=== PATIENT | female | born 1985 | race Caucasian/White ===

== ENCOUNTER 2016-08-27 14:26 | Emergency (ER) | payer OTHER ==
[~2016-08-27] VITALS: Ht 165.1 cm; Wt 79.6 kg
[~2016-08-27 14:26] MED LIST: CIPR500T94 PO; PNV1TABL69 PO
[2016-08-27 14:38] VITALS: BP 126/63
--- NOTE | 2016-08-27 15:33 | ED.ADGEN ---
Past History Past Medical History: No Pertinent History Past Surgical History: No Surgical History Smoking: Non-smoker Alcohol Use: None Drug Use: None Adult General Chief Complaint Chief Complaint Near syncope HPI HPI Patient is a 30 year old female who presents couple of hours ago while at work and standing she became lightheaded and her vision got a little blurry she had trouble talking and thought she was going to pass out. Sometime thereafter she did notice a mild to moderate headache that was generalized and gradual in onset. She did not actually pass out. Denies any chest pain or shortness of breath or abdominal pain or cramps. Denies any leakage of fluid. She is a at 16 weeks by LMP no care for this particular yet. Review of gestational diabetes in the past. Denies ataxia, slurred speech or difficulty with coordination. Reports not eating breakfast prior to this event Review of Systems Review of Systems Constitutional: Denies fever or chills [] Eyes: Denies change in visual acuity, redness, or eye pain [] HENT: Denies nasal congestion or sore throat [] Respiratory: Denies cough or shortness of breath [] Cardiovascular: No additional information not addressed in HPI [] GI: Denies abdominal pain, nausea, vomiting, bloody stools or diarrhea [] : Denies dysuria or hematuria [] Musculoskeletal: Denies back pain or joint pain [] Integument: Denies rash or skin lesions [] Neurologic: Denies focal weakness or sensory changes [] Endocrine: Denies polyuria or polydipsia All systems negative except as noted in the history of present illness [] Current Medications Current Medications Current Medications Medications (Trade) Dose Ordered Sig/Dalton Start Time Stop Time Status Last Admin Dose Admin Dextrose/Sodium Chloride 500 ml @ 0 mls/hr 1X ONCE 08/27/16 15:45 08/27/16 15:47 DC 08/27/16 16:10 500 MLS/HR Sodium Chloride 1,000 ml @ 1,000 mls/hr 1X ONCE 08/27/16 15:45 08/27/16 16:44 DC 08/27/16 16:15 1,000 MLS/HR Allergies Allergies Allergies Coded Allergies Type Severity Reaction Last Updated Verified No Known Drug Allergies 09/19/14 No Physical Exam Physical Exam Constitutional: Well developed, well nourished, no acute distress, non-toxic appearance. [] HENT: Normocephalic, atraumatic, bilateral external ears normal, oropharynx moist, no oral exudates, nose normal. [] Eyes: PERRLA, EOMI, conjunctiva normal, no discharge. [] Neck: Normal range of motion, no tenderness, supple, no stridor. [] Cardiovascular:Heart rate regular rhythm, no murmur [] Lungs & Thorax: Bilateral breath sounds clear to auscultation [] Abdomen: Bowel sounds normal, soft, no tenderness, no masses, no pulsatile masses. [] Skin: Warm, dry, no erythema, no rash. [] Back: No tenderness, no CVA tenderness. [] Extremities: No tenderness, no cyanosis, no clubbing, ROM intact, no edema. [] Neurologic: Alert and oriented X 3, normal motor function, normal sensory function, no focal deficits noted. [] Psychologic: Affect normal, judgement normal, mood normal. [] Current Patient Data Vital Signs Vital Signs Date Time Temp Pulse Resp B/P (MAP) Pulse Ox O2 Delivery O2 Flow Rate FiO2 08/27/16 14:38 97.7 75 20 98 Room Air Lab Results Laboratory Tests Test 08/27/16 15:31 Urine Collection Type Unknown Urine Color Yellow Urine Clarity Cloudy Urine pH 6.0 Urine Specific [place] 1.025 Urine Protein Neg (NEG-TRACE) Urine Glucose (UA) Neg mg/dL (NEG) Urine Ketones (Stick) Neg mg/dL (NEG) Urine Blood Neg (NEG) Urine Nitrite Neg (NEG) Urine Bilirubin Neg (NEG) Urine Urobilinogen Dipstick 2 mg/dL (0.2 mg/dL) Urine Leukocyte Esterase Trace (NEG) Urine RBC 1-2 /HPF (0-2) Urine WBC 5-10 /HPF (0-4) Urine Squamous Epithelial Cells Many /LPF Urine Bacteria 0 /HPF (0-FEW) Urine Mucus Mod /LPF EKG EKG [] Radiology/Procedures Radiology/Procedures [] Course & Med Decision Making Course & Med Decision Making Pertinent Labs and Imaging studies reviewed. (See chart for details) Patient is non-ill appearing is a normal neurologic exam. We will give her IV fluids check an i-STAT EKG and UA. Patient is declining a CT head at this time. Urinalysis was clean of infection, i-STAT was unremarkable and patient felt improved after IV fluids and was wanting to go home I recommended more frequent eating and adequate drinking of fluids. [] Final Impression Final Impression Near syncope, dehydration, 16 weeks [] Problems: Dragon Disclaimer Dragon Disclaimer This electronic medical record was generated, in whole or in part, using a voice recognition dictation system. DUGLAS MARTINEZ MD Aug 27, 2016 15:33
[2016-08-27] MEDS ORDERED: IV DEXTROSE 5% - 0.9 % NACL 500 ML IV ONE ×2 (15:45)
[2016-08-27] MEDS ORDERED: IV NORMAL SALINE 1,000ML 1,000 ML IV ONE (15:45)
--- NOTE | 2016-08-27 16:04 | EKG ---
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
[2016-08-27 16:21] LABS: BILIRUBIN,URINE NEG (NEG); CLARITY,URINE CLOUDY; COLOR,URINE YELLOW; GLUCOSE,URINE NEG (NEG); NITRITE,URINE NEG (NEG)
[2016-08-27 16:22] LABS: BACTERIA,URINE 0 /HPF (0-FEW); SQUAMOUS EPITHELIAL CELL,UR MANY /LPF; UROBILINOGEN,URINE 2 mg/dL (0.2 mg/dL)
[2016-08-27] MEDS ORDERED: ONDA4TAB12 PO (17:26)
[2016-08-27] MEDS ORDERED: ONDANSETRON ODT 4 MG TAB.RAPDIS ONE (17:51)
[2016-08-27] MEDS ORDERED: ONDANSETRON ODT 4 MG TAB.RAPDIS PO ONE (18:00)
[2016-08-28 15:19] LABS: HEMOGLOBIN ISTAT 12.2 gm/dL; POTASSIUM ISTAT 3.3 mmol/L (3.5-5.0)
== END 2016-08-27 18:09 | disposition home or self-care (01) ==
LOC: ER 14:26
DX: O26.892 Other specified pregnancy related conditions, second trimester (principal); E86.0 Dehydration; R55 Syncope and collapse; Z3A.16 16 weeks gestation of pregnancy
CPT/HCPCS: 80047; 81001; 87086; 93005; 96360; 99285; J7042; Q0162; J7030

== ENCOUNTER 2017-02-05 08:49 | Emergency (ER) | payer OTHER ==
[~2017-02-05] VITALS: Ht 165.1 cm; Wt 88.5 kg
[~2017-02-05 08:49] MED LIST changes: +ONDA4TAB12 PO
[2017-02-05 10:00] VITALS: BP 129/76
--- NOTE | 2017-02-05 10:28 | PHYS DOC ---
Past History Past Medical History: No Pertinent History Past Surgical History: No Surgical History Smoking: Non-smoker Alcohol Use: None Drug Use: None Adult General Chief Complaint Chief Complaint: VOMITING IN HPI HPI 31-year-old female presenting to the emergency department today with nausea vomiting and diarrhea. She reports her entire family is having nausea vomiting and diarrhea. Her vomitus is nonbloody and nonbilious. She is 39 weeks by ultrasound. Her insurance and benefits clerk is at [facility]. She describes a sharp shooting pain in her epigastrium that is mild intermittent and nonradiating. She does not believe she is in labor. She denies having contractions. She denies vaginal bleeding. Review of systems is negative for chest pain shortness of breath fevers chills headache confusion cyanosis or lethargy. All other review of systems is negative unless otherwise noted in history of present illness. ED course: 31-year-old female presenting to the emergency department with nausea vomiting and diarrhea. She was approximately 39 weeks so I recommended the patient be seen in labor and delivery. I recommended the patient be transferred by ambulance given her gestational age and parity. The patient desires to be transferred by private vehicle. She will call a family member to transport. On my examination of the patient she has a soft nontender abdomen. Uterus is a few centimeters below the xiphoid. Otherwise unremarkable examination she is well-appearing with a normal blood pressure and heart rate. I do not believe the patient is in labor. The patient is stable. I discussed the case with the insurance and benefits clerk and [facility] Dr. Rodgers who accepted the patient for transfer. Transfer paperwork filled out. Patient subsequently left by POV. Review of Systems Review of Systems SEE ABOVE. Allergies Allergies Allergies Coded Allergies Type Severity Reaction Last Updated Verified No Known Drug Allergies 09/19/14 No Physical Exam Physical Exam SEE ABOVE Constitutional: Well developed, well nourished, no acute distress, non-toxic appearance. HENT: Normocephalic, atraumatic, bilateral external ears normal, oropharynx moist, no oral exudates, nose normal. [] Eyes: PERRLA, EOMI, conjunctiva normal, no discharge. Neck: Normal range of motion, no tenderness, supple, no stridor. [] Cardiovascular:Heart rate regular rhythm, no murmur Lungs & Thorax: Bilateral breath sounds clear to auscultation [] Abdomen: gravid. Bowel sounds normal, soft, no tenderness, no masses, no pulsatile masses. Skin: Warm, dry, no erythema, no rash. [] Back: No tenderness, no CVA tenderness. Extremities: No tenderness, no cyanosis, no clubbing, ROM intact, no edema. Neurologic: Alert and oriented X 3, normal motor function, normal sensory function, no focal deficits noted. [] Psychologic: Affect normal, judgement normal, mood normal. [] EKG EKG [] Radiology/Procedures Radiology/Procedures [] Course & Med Decision Making Course & Med Decision Making Pertinent Labs and Imaging studies reviewed. (See chart for details) [] Dragon Disclaimer Dragon Disclaimer This electronic medical record was generated, in whole or in part, using a voice recognition dictation system. Departure Departure: Impression: Primary Impression: Nausea and vomiting during Disposition: 02 XFER SHT-TRM HOSP Condition: STABLE LAKESHA BROWNLEE MD Feb 05, 2017 10:28
== END 2017-02-05 10:05 | disposition short-term general hospital (02) ==
LOC: ER 08:49
DX: O21.9 Vomiting of pregnancy, unspecified (principal); O26.893 Other specified pregnancy related conditions, third trimester; R19.7 Diarrhea, unspecified; R10.13 Epigastric pain; Z3A.39 39 weeks gestation of pregnancy
CPT/HCPCS: 99285

== ENCOUNTER 2018-03-13 14:01 | Emergency (ER) | payer SELFPAY ==
[~2018-03-13] VITALS: Ht 165.1 cm; Wt 79.6 kg
[~2018-03-13 14:01] MED LIST changes: +PNV1TABL31 PO; -PNV1TABL69 PO
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
[2018-03-13 15:05] VITALS: BP 122/72
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
== END 2018-03-13 15:24 | disposition home or self-care (01) ==
LOC: EEVIPCON 14:01 → ER 14:01
DX: S01.111A Laceration without foreign body of right eyelid and periocular area, initial encounter (principal); R22.0 Localized swelling, mass and lump, head; R68.84 Jaw pain; R51 Headache; Y04.0XXA Assault by unarmed brawl or fight, initial encounter; Y93.89 Activity, other specified; Y92.89 Other specified places as the place of occurrence of the external cause; Y99.8 Other external cause status
CPT/HCPCS: 70150; 99283

== ENCOUNTER → 2021-02-01 | Outpatient (CLI) | payer OTHER ==
--- NOTE | 2021-02-01 08:35 | RAD ---
Limited abdominal ultrasound of the right upper abdomen 02/01/2021 INDICATION: Increased LFTs. COMPARISON STUDY: None Discussion: Ultrasound evaluation of the right upper quadrant was performed. Static images are submit viridiana to PACS. The pancreas is nonvisualized. Visualized portions of the IVC are unremarkable. Liver is top normal in size measuring 17 cm longitudinally. There is diffuse increase in hepatic echogenicity which most commonly reflects hepatic steatosis. Portal venous flows in the normal direction. The gal lbladder is unremarkable in appearance without evidence of wall thickening, stones, or sludge. The ri ght kidney is unremarkable in appearance measuring 10.5 cm longitudinally. The common bile duct is no ndilated measuring 3 mm in diameter. IMPRESSION: 1. Hepatic steatosis. 2. No other focal sonographic abnormality in the right upper abdomen is identified Electronically signed by: Jc Cartagena MD (02/01/2021 8:33 AM) [id number]
== END ==
LOC: US 07:49
PROVIDERS: ATTEND Internal Medicine
DX: K76.0 Fatty (change of) liver, not elsewhere classified (principal); R74.8 Abnormal levels of other serum enzymes
CPT/HCPCS: 76705